=== PATIENT | male | born 1960 | race Asian ===

== ENCOUNTER 2021-12-10 14:58 | Outpatient (CLI) | payer MEDICAID ==
--- NOTE | 2021-12-10 16:36 | XRAY Report ---
PROCEDURE: Lumbar Spine 2 View INDICATIONS: BACK PX TECHNIQUE: 2 views of the lumbar spine were acquired. COMPARISON: None. FINDINGS: Bones: 5 [id number] vertebrae are present. There is mild diffuse lumbar curvature of the lumba r spine. Mild grade 1 retrolisthesis of L1 on L2, L2 on L3, and L3 on L4. Mild grade 1 anterolisthesi s of L4 on L5. Multilevel disc space narrowing and endplate osteophyte formation throughout the thora columbar spine. Facet hypertrophy throughout the mid and lower lumbar spine No vertebral body nereyda curt fractures. No suspicious bony lesions. Soft tissues: Overlying bowel gas pattern is normal. No suspicious soft tissue calcifications. IMPRESSION: 1. Multilevel degenerative disc and facet disease. 2. No acute fracture. No osseous lesion. If symptoms and/or clinical suspicion for pathology continue , further assessment with repeat plain films, or advanced imaging (e.g., CT, MRI, or bone scan) is re commended for further assessment. Reviewed by: Isaías De Jesus MD on 12/10/2021 4:35 PM PDT Approved by: Isaías De Jesus MD on 12/10/2021 4:35 PM PDT Station ID: [id number]
== END 2021-12-10 14:59 | disposition home or self-care (01) ==
LOC: DI 14:58
PROVIDERS: ATTEND Internal Medicine
DX: M47.816 Spondylosis without myelopathy or radiculopathy, lumbar region (principal); M51.36 Other intervertebral disc degeneration, lumbar region

== ENCOUNTER 2022-08-18 15:41 | Outpatient (CLI) | payer MEDICAID ==
--- NOTE | 2022-08-18 17:23 | XRAY Report ---
PROCEDURE: Knee 3 View LT INDICATIONS: L KNEE PX TECHNIQUE: 3 views of the left knee(s) were acquired. COMPARISON: None. FINDINGS: Postoperative changes from prior fixation of the proximal tibia with 2 plates and multiple screws. Marcano rdware is incompletely imaged. Imaged portions of the hardware appears intact. Moderate degenerative changes at the medial and lateral compartments, mild patellofemoral compartment degenerative changes. No definite acute fracture visualized. Remote, healed proximal fibular fracture. IMPRESSION: Tricompartmental degenerative changes of the knee. Reviewed by: Eliseo Gonzalez MD on 08/18/2022 5:22 PM PST Approved by: Eliseo Gonzalez MD on 08/18/2022 5:22 PM PST Station ID: [id number]
== END 2022-08-18 15:42 | disposition home or self-care (01) ==
LOC: DI 15:41
PROVIDERS: ATTEND Internal Medicine
DX: M17.12 Unilateral primary osteoarthritis, left knee (principal)